=== PATIENT | male | born 1945 | race Caucasian/White ===

== ENCOUNTER 2018-05-07 09:35 | Emergency (ER) | payer MEDICARE, BC, SELFPAY ==
[2018-05-07 09:37] VITALS: BP 167/99; PULSE 69; RESP 16; TEMP 36.5; O2SAT 97; BMI 30.7
--- NOTE | 2018-05-07 09:54 | CT_ITS ---
STUDY: CT ABDOMEN AND PELVIS WITHOUT CONTRAST REASON FOR EXAM: Male, 72 years old. Right-sided groin pain. Lower abdominal pain. RADIATION DOSAGE (If Supplied By Facility): CTDIvol = ( 13.40 ) mGy, DLP = ( 823.81 ) mGycm TECHNIQUE: Transaxial images were obtained from the dome of the diaphragm to the symphysis pubis without oral contrast, and without intravenous contrast. Sagittal and coronal images were reconstructed. Individualized dose optimization techniques were used for this CT. COMPARISON: None. FINDINGS: The visualized lung bases are unremarkable. Coronary artery calcification. There is a 7.3 mm round hypodensity in the inferior aspect of the right lobe of the liver suggestive of a small cyst. Normal gallbladder and extrahepatic biliary system. Normal spleen. Normal pancreas. There is a small, circumscribed, smooth, low attenuation right adrenal mass, consistent with an adrenal adenoma. This measures 1.4 cm. Normal left adrenal gland. 3 mm nonobstructive calculus in the lower pole calyx of the right kidney. There is a 4.7 mm nonobstructive calculus in the lower pole calyx of the left kidney. 2 nonobstructive calculus are seen in the lower pole calyx of the left kidney measuring approximately 2.5 mm. Nonspecific bilateral perinephric stranding. There is a small hiatal hernia. Normal small intestine. There are scattered colonic diverticula consistent with diverticulosis. The patient is status post appendectomy. There is diffuse atherosclerotic calcification of the abdominal aorta, without a demonstrated aneurysm. Normal inferior vena cava. Normal retroperitoneum. Bladder wall thickening. There is enlargement of the prostate gland. The prostate measures 3.7 cm x 5.1 cm. Small bilateral fat-containing inguinal hernias. Small umbilical hernia. There are degenerative changes of the visualized lumbar spine. CT/Abdomen/Pelvis without Cont IMPRESSION: Nonobstructive small bilateral intrarenal calculi. Nonspecific bilateral perinephric stranding. Electronically Signed: Jori Vera MD at 11:21 EST Tel [phone], Service support ,
[2018-05-07 10:38] LABS: Bacteria 0 SEEN /hpf (None Seen); Mucous, Urine 0 SEEN /hpf (<or=2+); Red Blood Cells-Urine 0 SEEN /hpf (0-5); Squamous Epithelial Cells - UA 0 SEEN /hpf (0-5); White Blood Cells 0 SEEN /hpf (0-5)
[2018-05-07 10:39] LABS: Color, Urine Yellow (Yellow); Glucose, Dipstick Normal (Normal); Ketone-Dipstick Negative (Negative); Leukocyte Esterase-Dipstick Negative /ul (Negative); Nitrite-Dipstick Negative (Negative); Occult Blood-Urine Negative /ul (Negative); Protein-Dipstick Negative (Negative); Urine Bilirubin Dipstick Negative (Negative); Urine Clarity Clear (Clear); Urine Urobilinogen Normal (Normal)
[2018-05-07 10:50] LABS: Absolute Lymphocyte Count 1.23 X10^3/ul (0.83-4.51); Absolute Neutrophil Count 4.5 X10^3/uL (2.0-7.7); Basophil# 0.02 X10^3/uL; Basophil% 0.3 % (0-1); Eosinophil# 0.12 X10^3/uL; Eosinophils% 1.9 % (0-5); Hematocrit 43.3 % (40-54); Hemoglobin 14.8 g/dl (13.0-16.5); Lymphocyte # 1.23 X10^3/ul (4.0); Lymphocyte % 19.2 % (19-41); Mean Corp Hgb Conc 34.2 g/gl (32-36); Mean Corpuscular Hgb 30.9 pg (27.0-32.0); Mean Corpuscular Volume 90.4 fL (80-94); Mean Platelet Vol. 9.6 fl (6.2-12.0); Monocyte% 7.8 % (0-10); Neutrophil # 4.52 X10^3/uL (2.7-7.7); Neutrophil % 70.6 % (47-70); POSITIVE COUNT NO; POSITIVE DIFFERENTIAL NO; POSITIVE MORPHOLOGY NO; Platelet Count 168 K/mm3 (150-450); RBC Distribution Width CV 13.3 % (11.6-14.6); RBC Distribution Width SD 43.9 fl (35.1-43.9); Red Blood Count 4.79 M/mm3 (4.6-6.2); White Blood Count 6.4 K/mm3 (4.4-11.0)
[2018-05-07 11:08] LABS: ALB/GLOB Ratio 1.2 RATIO (0.9-2.4); AST(SGOT) 21 U/L (15-37); Alanine Aminotransfer ALT/SGPT 33 U/L (16-61); Albumin, Serum 3.6 g/dL (3.2-5.0); Alkaline Phosphatase 79 U/L (45-117); Anion Gap 4 (5-15); BUN 14 mg/dL (7-18); BUN/Creat Ratio 14.9 RATIO (10-20); Calcium,Total 8.4 mg/dL (8.5-10.1); Chloride 109 mmol/L (98-107); Creatinine, Serum 0.94 mg/dL (0.70-1.30); EST Glomerular Filtration Rate 84 mL/min (>60); Est Glom Filt Rate - Afr Amer 102 mL/min (>60); Estimated Creatinine Clearance 65.04 ml/min; Glucose 93 mg/dL (74-106); Potassium 4.1 mmol/L (3.5-5.1); Protein, Total 6.6 g/dL (6.4-8.2); Sodium Level 143 mmol/L (136-145)
[2018-05-07] MEDS: Morphine 4 MG/ML Syringe IV (11:25)
--- NOTE | 2018-05-07 11:36 | ED.DCSUM_ITS ---
- ER Visit Summary Date of Service: 05/07/18 Chief Complaint: Right lower quadrant abdominal pain History of Present Illness: The patient is a 72 M who presents with right lower quadrant abdominal pain. Started 10 days ago. He describes as sharp. Nothing makes it better or worse. He denies nausea, vomiting, diarrhea or constipation. Denies urinary symptoms. He denies any history of kidney stones. He has not had a fever. He states he feels swollen in the lower part of his abdomen. He has had an appendectomy approximately 30 years ago Physical Examination: Vital signs reviewed. HEENT exam unremarkable. Heart is regular rate and rhythm without murmurs. Lungs are clear to auscultation. Abdomen is soft mild right lower quadrant tenderness to palpation. Extremities reveal no edema. Skin exam normal. Neurologic exam normal. Test Results: Laboratory studies are normal. CAT scan reveals some nonspecific perinephric stranding with stones inside of the kidney. Emergency Department Course and Treatment: Patient initially declined medications with he was then given morphine. I am unclear the etiology of the patient's symptoms. It is possible that he may have passed a kidney stone. However, there are no stones in the ureters at this time. There is no dilation. He has no blood in his urine. His urinalysis is negative. I will send the patient with naproxen for pain control. He will need to follow-up with his PCP for further evaluation. Treatment Plan: [] Disposition: Discharge Impression: Right lower quadrant abdominal pain This note was generated with Backand dictation software. It may contain incorrect words, spelling, and punctuation that were not noted in review of the chart prior to signing ED Disposition - Plan for ED Patient: Disposition: Home or Assisted Living Chief Complaint: Abd Pain Instructions: ED Abdominal Pain Unkn Cause Prescriptions: Naproxen [Naprosyn] 500 mg PO BID PRN #20 tab Referrals: Tommy James [Primary Care Provider] -
[2018-05-07 12:17] VITALS: BP 140/63; PULSE 67; RESP 14; O2SAT 99
--- OUTSIDE RECORDS SUMMARY | 2018-08-08 23:50 | XMS RPT_ITS ---
:1945 Author Organization [facility] Address [address] [place] [id number] Phone Care Team Providers Name Role Phone Manny YI, Antonio Santana Reason for Visit Reason For Visit Description Start Date Postop - subsequent visit Preliminary reason for visit data, not yet signed by the author as of left shoulder post Left reverse total shoulder using Preserve 8 mm stem a 0 humeral on 04/03/2017 Preliminary reason for visit data, not yet signed by the author as of Chief Complaint Chief Complaint Description Start Date left shoulder post Left reverse total shoulder using Preserve 8 mm stem a 0 humeral on 04/03/2017 Preliminary chief complaint data, not yet signed by the author as of Instructions No information available. Plan of Care Type Date Detail Appointment 09:45 AM Antonio Bryant MD, [address] [facility], [email or web address], [place], [address], Appointment 10:15 AM Antonio Bryant MD, [address] [facility], [address], [place], [address], Pending order XR SHOULDER 2 VWS-LT Medications Medication Instructions Start Stop Generic Name NDC Provider Date Date LISINOPRIL 2.5 one tablet / LISINOPRIL 93357179343 Zeus L MG TABS daily 29 Ritchie YI VITAMIN D3 Take 1 capsule / CHOLECALCIFEROL 89695884843 Kathya [id number] UNIT CAPS by mouth daily 08 Czyzyk for 5 days. PA-C Then take 1 capsule by mouth per week for 5 weeks ATORVASTATIN take 1 tablet ATORVASTATIN 43205352243 Zoe CALCIUM 10 MG once daily 19 CALCIUM Fatimah PAYROLL EXAMINER TABS Conditions or Problems Problem Name Problem Onset Status Entry Provider Comment Standard Annotate Code Date Date Description Vitamin D 77672306 Active Antonio Bowling Vitamin D deficiency (SNOMED CT) 06/23 06/23 Manny YI deficiency Bruce of toe 07659020 Active Zeus Altman Bruce of toe 5th PIPJ (SNOMED CT) 06/25 06/25 Ritchie YI Curly toe 189157672 Active Zeus Altman Curly toe right 4th (SNOMED CT) 06/25 06/25 Ritchie and 5th MD toes History of 871836501 Active Zeus Altman H/O: surgery bunionectomy of (SNOMED CT) 06/25 06/25 Ritchie right great toe Metatarsalgia 85390565 Active Zeus Altman Metatarsalgia of right foot (SNOMED CT) 06/25 06/25 Ritchie YI Status post 450154216 Active Kathya History of reverse total (SNOMED CT) 06/07 06/07 Czyzyk operative arthroplasty of PA-C procedure on left shoulder shoulder Complete M75.122 Active Antonio Bowling Complete rotator cuff (ICD-10-CM) 10/19 10/19 Manny YI rotator cuff tear or rupture tear or of left rupture of shoulder not left shoulder, specified as not specified traumatic as traumatic Allergies, Adverse Reactions, Alerts Allergy Name Reaction Start Date Severity Status Provider Description ASPIRIN patient states Critical Active Zoe Sheridan that 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 Vital Signs Date Name Value Unit Description BMI (Body Mass 20.73 kg/m2 Body Mass Index Index) [Ratio] Preliminary vital sign data, not yet signed by the author as of BP Diastolic 87 mm[Hg] blood pressure, diastolic Preliminary vital sign data, not yet signed by the author as of BP Systolic 135 mm[Hg] blood pressure, systolic Preliminary vital sign data, not yet signed by the author as of Heart Rate 64 /min pulse rate E&M Preliminary vital sign data, not yet signed by the author as of Height 66 [in_us] height E&M Preliminary vital sign data, not yet signed by the author as of Height 168 cm height in centimeters E&M Preliminary vital sign data, not yet signed by the author as of Weight Measured 128 [lb_av] weight E&M Preliminary vital sign data, not yet signed by the author as of Weight Measured 58 kg weight in kilograms E&M Preliminary vital sign data, not yet signed by the author as of Results Date Name Value Unit Range Flag Description Office Visit: Postop - subsequent visit, Rm: 40 MEDS REVIEW Done Documentation of current medications (procedure) Preliminary observation data, not yet signed by the author as of Preliminary observation data, not yet signed by the author as of Clinical Summary: [facility]MS[facility] OOP account number Procedures Code Procedure Name Date Entry Date G8730 Pain assessment documented as positive - follow-up documented G8427 Current medications documented 1036F Tobacco screening was negative - non user G8420 BMI documented within normal parameters - no follow-up plan is required G8783 Blood pressure within normal parameters - no follow-up required [id number] Patient Encounter Medications Administered No information available. Immunizations No information available. Advance Directives There may be information available, but it has not been provided by the sender. Assessments There may be information available, but it has not been provided by the sender. Review of Systems There may be information available, but it has not been provided by the sender. Family History There may be information available, but it has not been provided by the sender. History of Past Illness There may be information available, but it has not been provided by the sender. History of Present Illness There may be information available, but it has not been provided by the sender.
--- OUTSIDE RECORDS SUMMARY | 2018-08-08 23:50 | XMS RPT_ITS ---
:1945 Author Organization OHIP Care Team Providers Name Role Phone RACHEAL LUTHER MD Admitting Unavailable RACHEAL LUTHER MD Attending Unavailable RACHEAL LUTHER MD Primary Care Unavailable KEYONA COKER MD Admitting Unavailable KEYONA COKER MD Attending Unavailable KEYONA COKER MD Primary Care Unavailable KEYONA COKER MD Consulting Unavailable PROVIDER, UNKNOWN Consulting Unavailable PROVIDER, UNKNOWN Consulting Unavailable PROVIDER, UNKNOWN Consulting Unavailable KEYONA COKER MD Admitting Unavailable KEYONA COKER MD Attending Unavailable KEYONA COKER MD Primary Care Unavailable MORIS MOSLEY Consulting Unavailable PROVIDER, UNKNOWN Consulting Unavailable PROVIDER, UNKNOWN Consulting Unavailable PROVIDER, UNKNOWN Consulting Unavailable Danish Platt Attending Unavailable KEYONA COKER Primary Care Unavailable Alirio Serna Attending Unavailable KEYONA COKER Referring Unavailable PROBLEMS PROBLEMS DATE TYPE CONDITION / CODE ATTENDING STATUS SOURCE 03/06/2018 Principle Pure LATOUF, BUTROS Active [place] Diagnosis hypercholesterolem MD [facility], unspecified / Hospital E7800(ICD-10) Repository 03/02/2018 Admitting Essential LATOUF, BUTROS Active [place] Diagnosis (primary) [facility] hypertension / Hospital I10(ICD-10) Repository 03/02/2018 Principle Essential LATOUF, BUTROS Active [place] Diagnosis (primary) [facility] hypertension / Hospital I10(ICD-10) Repository 03/02/2018 Secondary Pure LATOUF, BUTROS Active [place] Diagnosis hypercholesterolem [facility] ia, unspecified / Hospital E7800(ICD-10) Repository 03/02/2018 Secondary Encounter for LATOUF, BUTROS Active [place] [place] Diagnosis screening for [facility] malignant neoplasm [facility] of prostate / Repository Z125(ICD-10) PROCEDURES PROCEDURES No Procedure Records FoundRESULTS RESULTS SURGERY VISIT REPORT Observed: 05/21/2018 Status: F Source: [place] 1:03 PM [facility] REPOSITORY [facility] [address] [place] [address]. 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 Ointment] 1 drp OP DAILY PRN PRN 05/07/18 [History Confirmed 05/17/18] Naproxen [Naprosyn] 500 mg PO BID PRN #20 tab 05/07/18 [Rx Confirmed 05/17/18] aspirin 81 mg tablet,delayed release 81 mg PO DAILY 05/17/18 [History Confirmed 05/17/18] multivitamin,ky-prex-dtbgzspe tablet 1 tab PO DAILY 05/17/18 [History Confirmed 05/17/18] [facility] Medical History Back pain (Acute) Benign neoplasm of colon (Acute) DJD (degenerative joint disease) (Acute) Depression (Acute) Hyperlipidemia (Acute) HTN (hypertension) (Chronic) Surgical History History of appendectomy (Acute) History of bunionectomy (Acute) History of cataract extraction (Acute) History of colonoscopy (Acute) History of shoulder surgery (Acute) Status post excision of Suggs's neuroma (Acute) Family History Sister Breast cancer Brother Hypertension Heart disease Diabetes Mother Asthma Social History Smoking Status: Never smoker alcohol intake: never substance use type: does not use HPI HPI HPI: JOSE POTTER, is a 72 M who presents to the office today for evaluation of pain in his right lower quadrant right inguinal area. He was seen in [facility]'s emergency department. Laboratory studies are normal. CAT scan reveals some nonspecific perinephric stranding with stones inside of the kidney. He has not noticed a bulge in his inguinal area ROS General General: No weight change, appetite, fatigue, colon cancer, breast cancer or weakness HEENT HEENT: Yes eye surgery; no difficulty swallowing, eye injury, swollen glands or hoarseness Endo Endocrine: No thyroid disease, diabetes mellitus, thyroid cancer, Hair loss, heat intolerance or cold intolerance Skin Skin: No rash or changing moles Breast Breast: No left breast lump, right breast lump, nipple discharge, breast pain, abnormal mammogram, abnormal US or breast enlargement Musc Musculoskeletal: Yes back problems; no arthritis, rheumatoid arthritis, gout or joint pain Cardio Cardiovascular: Yes high blood pressure; no murmur, pacemaker, heart disease, atrial fibrillation, heart attack, heart stent, palpitations, shortness of breat with exertion or chest pain Psych Psychiatric: No depression, anxiety or hearing voices Resp Respiratory: No shortness of breath, No sleep apnea, No cough, No COPD, No asthma, No emphysema, No wheezing Gastro Gastrointestinal: No abdominal pain, No nausea or vomiting, No diarrhea, No constipation, No blood in stool, No acid reflux, No hemorrhoids, No ulcers, No gallbladder problem, No black,tarry stools Randell Hematologic: No blood thinners, No blood disorders, No bleeding, No anemia, No blood clots Neuro Neurologic: No system reviewed and no additional complaints, except as docu, No as per HPI, No abnormal walking, No abnormal hearing, No abnormal movements, No abnormal speech, No behavioral changes, No burning sensations, No confusion, No seizure-like activity, No unsteadiness, No dizziness, No localized weakness, No frequent falls, No headache(s), No lack of coordination, No loss of vision, No memory loss, No numbness, No other visual disturbances, No radiating pain, No restless legs, No sensory deficit, No fainting, No tingling, No tremor(s), No weakness, No other Exam Chest Breast Palpation: No nipple discharge Other: Lungs are clear to auscultation heart regular rate Cardio Heart Sounds: no murmurs GI Other: Patient has a well-healed right lower quadrant incision from a previous appendectomy. There is no signs of any inguinal hernias identified. Testicles appear to be normal with no masses. His cutaneous sensation within the right groin and upper thigh appear to be normal Assessment AND Plan Problems 1. Abnormal CT scan, kidney R93.429 2. Right lower quadrant abdominal abscess K65.1 Plan At this point he has no surgical needs for hernia operations. However his CAT scan does look abnormal with regards to his kidneys and I have recommended that he obtain a consultation from a urologist for this. In addition he also has some numbness in his right upper thigh area which probably would behoove him to obtain a neurology consult for this evaluation. At the present time I have no surgical interventions planned for him unless he specifically notices a bulge coming out into his right inguinal and testicle area Coding Level of Care Code Off vis,new,level [address] scan, kidney R93.429 Right lower quadrant abdominal abscess K65.1 05/21/18 1303 <Electronically signed by Alirio Serna MD> Date Alirio Serna MD Cosigner Signature: Date (if applicable) CC: Keyona Coker EMERGENCY DEPARTMENT Observed: 05/07/2018 Status: F Source: [place] SUMMARY 11:50 AM [facility] REPOSITORY [facility] Medical Records Department [address] [place] [address] Emergency Department Summary 05/07/18 1136 MR#: [id number] Acct: [id number] Name: JOSE POTTER Rep #: [id number] : 1945 72 From: Danish Platt MD PCP: Keyona Coker Status: REG ER - ER Visit Summary Date of Service: 05/07/18 Chief Complaint: Right lower quadrant abdominal pain History of Present Illness: The patient is a 72 M who presents with right lower quadrant abdominal pain. Started 10 days ago. He describes as sharp. Nothing makes it better or worse. He denies nausea, vomiting, diarrhea or constipation. Denies urinary symptoms. He denies any history of kidney stones. He has not had a fever. He states he feels swollen in the lower part of his abdomen. He has had an appendectomy approximately 30 years ago Physical Examination: Vital signs reviewed. HEENT exam unremarkable. Heart is regular rate and rhythm without murmurs. Lungs are clear to auscultation. Abdomen is soft mild right lower quadrant tenderness to palpation. Extremities reveal no edema. Skin exam normal. Neurologic exam normal. Test Results: Laboratory studies are normal. CAT scan reveals some nonspecific perinephric stranding with stones inside of the kidney. Emergency Department Course and Treatment: Patient initially declined medications with he was then given morphine. I am unclear the etiology of the patient's symptoms. It is possible that he may have passed a kidney stone. However, there are no stones in the ureters at this time. There is no dilation. He has no blood in his urine. His urinalysis is negative. I will send the patient with naproxen for pain control. He will need to follow-up with his PCP for further evaluation. Treatment Plan: [] Disposition: Discharge Impression: Right lower quadrant abdominal pain This note was generated with [employer] dictation software. It may contain incorrect words, spelling, and punctuation that were not noted in review of the chart prior to signing ED Disposition - Plan for ED Patient: Disposition: Home or Assisted Living Chief Complaint: Abd Pain Instructions: ED Abdominal Pain Unkn Cause Prescriptions: Naproxen [Naprosyn] 500 mg PO BID PRN #20 tab Referrals: Keyona Coker [Primary Care Provider] - What to do if you have Problems For any increased pain, shortness of breath, bleeding, nausea or vomiting, chest pain, or any unexpected problems, contact your Primary Care Provider. Call [facility] ([phone]) or report to the closest Emergency Room. Call 911 if necessary. 05/07/18 1150 <Electronically signed by Danish Platt MD> Date Danish Platt MD Cosigner Signature (If Indicated): Date CC: Keyona Coker DISCHARGE INSTRUCTION Observed: 05/07/2018 Status: F Source: [place] 11:37 AM [facility] REPOSITORY [facility] Medical Records Department [address] [place] [address] Discharge Instruction 05/07/18 1136 MR#: [id number] Acct: [id number] Name: JOSE POTTER Rep #: [id number] : 1945 72 From: Danish Platt MD PCP: Keyona Coker Status: REG ER ED Disposition - Plan for ED Patient: Disposition: Home or Assisted Living Chief Complaint: Abd Pain Instructions: ED Abdominal Pain Unkn Cause Prescriptions: Naproxen [Naprosyn] 500 mg PO BID PRN #20 tab Referrals: Keyona Coker [Primary Care Provider] - What to do if you have Problems For any increased pain, shortness of breath, bleeding, nausea or vomiting, chest pain, or any unexpected problems, contact your Primary Care Provider. Call [facility] ([phone]) or report to the closest Emergency Room. Call 911 if necessary. 05/07/18 1137 <Electronically signed by Danish Platt MD> Date Danish Platt MD Cosigner Signature (If Indicated): Date CC: Keyona Coker CBC W/DIFF, AUTOMATED Collected: 05/07/2018 Status: F Source: [place] 10:40 AM [facility] REPOSITORY TYPE CODE TESTS RESULT OUT OF RANGE REFERENCE UNITS LAB L100.1000 4.4-11.0 K/mm3 Normal WBC 6.4 LAB L100.1200 4.6-6.2 M/mm3 Normal RBC 4.79 LAB L100.1300 13.0-16.5 g/dl Normal HGB 14.8 LAB L100.1400 40-54 % Normal HCT 43.3 LAB L100.1500 80-94 fL Normal MCV 90.4 LAB L100.1600 27.0-32.0 pg Normal MCH 30.9 LAB L100.1700 32-36 g/gl Normal MCHC 34.2 LAB L100.1810 11.6-14.6 % Normal RDW CV 13.3 LAB L100.1820 35.1-43.9 fl Normal RDW SD 43.9 LAB L100.1900 150-450 K/mm3 Normal PLT 168 LAB L100.2000 6.2-12.0 fl Normal MPV 9.6 LAB L100.2100 47-70 % High NEUT% 70.6 LAB L100.2200 19-41 % Normal LY% 19.2 LAB L100.2300 0-10 % Normal MONO% 7.8 LAB L100.2400 0-5 % Normal EO% 1.9 LAB L100.2500 0-1 % Normal BASO% 0.3 LAB L100.2550 0.0-0.9 % Normal IM GRAN % 0.200 Result Comment: IG% - Immature Granulocytes (promyelocytes, myelocytes and metamyelocytes) > 1% indicates that a LEFT SHIFT is Present. LAB L100.2620 2.0-7.7 X10 3/uL Normal Absolute Neut 4.5 LAB L100.2720 0.83-4.51 X10 3/ul Normal Absolute Lymph 1.23 Performed By: #### L100.0100 #### [facility] [address] [place], [address] COMPREHENSIVE METABOLIC Collected: 05/07/2018 Status: F Source: [place] [facility] 10:40 AM [facility] REPOSITORY TYPE CODE TESTS RESULT OUT OF RANGE REFERENCE UNITS LAB L501.0100 74-106 mg/dL Normal GLU 93 Result Comment: Please note revised GLUCOSE reference range effective 2017. LAB L501.1000 7-18 mg/dL Normal BUN 14 LAB L501.1100 0.70-1.30 mg/dL Normal CREAT,SERUM 0.94 Result Comment: The validity of the calculated GFR AND GFRAA in patients over 70 years has not been determined. Clinical correlation is essential. LAB L501.1110 >60 mL/min Normal EST GFR 84 Result Comment: Non- GFR Calc LAB L501.1115 >60 mL/min Normal EST GFR - AA 102 Result Comment: GFR Calc LAB L501.1255 ml/min Normal Estimated CRCL 65.04 LAB L501.1300 10-20 RATIO Normal BUN/CRE 14.9 LAB L501.1500 6.4-8. g/dL Normal 2 T PROT 6.6 LAB L501.1800 3.2-5. g/dL Normal 0 ALB 3.6 LAB L501.1950 2.2-4. g/dL Normal 2 GLOB 3.0 LAB L501.2000 0.9-2. RATIO Normal 4 A/G 1.2 LAB L501.2200 8.5-10 mg/dL Low .1 CA 8.4 LAB L501.4100 15-37 U/L Normal AST 21 LAB L501.4305 45-117 U/L Normal ALK P 79 LAB L501.4405 16-61 U/L Normal ALT 33 LAB L501.4600 0.20-1 mg/dL Normal .00 T BILI 0.50 LAB L501.5300 136-14 mmol/L Normal 5 NA 143 LAB L501.5600 3.5-5. mmol/L Normal 1 K 4.1 LAB L501.5900 98-107 mmol/L High CL 109 LAB L501.6100 21.0-3 mmol/L Normal 2.0 CO2 30.0 LAB L501.6200 5-15 Low GAP 4 Performed By: #### L500.4050 #### [facility] [address] [place], [address] URINALYSIS, COMPLETE Collected: 05/07/2018 Status: F Source: [place] 10:00 AM [facility] REPOSITORY Order Comment: Order Date: 05/07/18 How was Urine Obtained? CLEAN CATCH TYPE CODE TESTS RESULT OUT OF RANGE REFERENCE UNITS LAB L400.3000 Yellow COLOR Normal Yellow LAB L400.3050 Clear Normal CLARITY Clear LAB L400.3200 Normal mg/dl Normal GLUCOSE, UR Normal LAB L400.3300 Negative mg/dL Normal BILIRUBIN URINE Negative LAB L400.3400 Negative mg/dl Normal KETONE UR Negative LAB L400.3465 1.002-1.030 Normal SP.GR. DIPSTX 1.010 LAB L400.3550 5.0 - 8.0 pH UR Normal 7.0 LAB L400.3600 Negative mg/dl PROT Normal DIPSTX Negative LAB L400.3700 Normal mg/dl Normal UROBILI Normal LAB L400.3750 Negative Normal NITRITE UR Negative LAB L400.3780 Negative /ul Normal OCCULT BLOOD-UR Negative LAB L400.3800 Negative /ul LEUK Normal ESTERASE Negative LAB L400.4050 0-5 /hpf WBC 0 Normal SEEN LAB L400.4100 0-5 /hpf 0 Normal RBC-UA SEEN LAB L400.4150 0-5 /hpf SQUAM 0 Normal EPI SEEN LAB L400.4300 None Seen /hpf 0 Normal BACTERIA SEEN LAB L400.4350 <or=2+ /hpf 0 Normal MUCUS, URINE SEEN Performed By: #### L400.0001 #### [facility] [address] [place], [address] ABDOMEN/PELVIS WITHOUT Observed: 05/07/2018 Status: F Source: [place] CONT 9:55 AM [facility] REPOSITORY [facility] Imaging Services [address] [place] [address] Abdomen/Pelvis without Cont MR#: [id number] Acct: [id number] Name: JOSE POTTER Rep #: [id number] : 1945 M 72 From: Jori Vera MD PCP: Keyona Coker Status: REG ER Study: Abdomen/Pelvis without Cont Date of Exam: 05/07/18 Exam# [id number] Ordering Dr: Danish Platt MD STUDY: CT ABDOMEN AND PELVIS WITHOUT CONTRAST REASON FOR EXAM: Male, 72 years old. Right-sided groin pain. Lower abdominal pain. RADIATION DOSAGE (If Supplied By Facility): CTDIvol = ( 13.40 ) mGy, DLP = ( 823.81 ) mGycm TECHNIQUE: Transaxial images were obtained from the dome of the diaphragm to the symphysis pubis without oral contrast, and without intravenous contrast. Sagittal and coronal images were reconstructed. Individualized dose optimization techniques were used for this CT. COMPARISON: None. FINDINGS: The visualized lung bases are unremarkable. Coronary artery calcification. There is a 7.3 mm round hypodensity in the inferior aspect of the right lobe of the liver suggestive of a small cyst. Normal gallbladder and extrahepatic biliary system. Normal spleen. Normal pancreas. There is a small, circumscribed, smooth, low attenuation right adrenal mass, consistent with an adrenal adenoma. This measures 1.4 cm. Normal left adrenal gland. 3 mm nonobstructive calculus in the lower pole calyx of the right kidney. There is a 4.7 mm nonobstructive calculus in the lower pole calyx of the left kidney. 2 nonobstructive calculus are seen in the lower pole calyx of the left kidney measuring approximately 2.5 mm. Nonspecific bilateral perinephric stranding. There is a small hiatal hernia. Normal small intestine. There are scattered colonic diverticula consistent with diverticulosis. The patient is status post appendectomy. There is diffuse atherosclerotic calcification of the abdominal aorta, without a demonstrated aneurysm. Normal inferior vena cava. Normal retroperitoneum. Bladder wall thickening. There is enlargement of the prostate gland. The prostate measures 3.7 cm x 5.1 cm. Small bilateral fat-containing inguinal hernias. Small umbilical hernia. There are degenerative changes of the visualized lumbar spine. CT/Abdomen/Pelvis without Cont IMPRESSION: Nonobstructive small bilateral intrarenal calculi. Nonspecific bilateral perinephric stranding. Electronically Signed: Jori Vera MD at 11:21 EST Tel [phone], Service support , CC: Keyona Coker; Danish Platt MD Filenet Architect: Signed PSA CANCER SCREENING Collected: 03/02/2018 Status: F Source: [facility]OS[facility] ([id number]) 10:05 [facility] REPOSITORY TYPE CODE TESTS RESULT OUT OF RANGE REFERENCE UNITS LAB PSA(LOINC) 0.00 - 4.00 ng/ml PSA 3.84 Performed By: #### [id number] #### [place] [address] LIPID PROFILE Collected: 03/02/2018 Status: F Source: [place] HOWE 10:05 [facility] REPOSITORY TYPE CODE TESTS RESULT OUT OF REFERENCE UNITS RANGE LAB LIPID PROFILE(LOIN C) LIPID PROFILE Result Comment: LIPID PROFILE LAB TRIGLYCERIDE(LOINC) 0 - 150 mg/dl TRIGLYCERIDE 95 LAB CHOLESTEROL(LOINC) 0 - 200 mg/dl CHOLESTEROL 181 LAB HDL(LOINC) 40 - 60 mg/dl HDL 48 LAB CHOL/HDL(LOINC) 0.0 - 5.0 CHOL/HDL 3.8 LAB LDL(LOINC) 0 - 129 mg/dl LDL 114 Performed By: #### [id number] #### [facility],[address] [place] [address] CMP WITH EGFR Collected: 03/02/2018 Status: F Source: [facility]ARMES[facility] 10:05 [facility] REPOSITORY TYPE CODE TESTS RESULT OUT OF RANGE REFERENCE UNITS LAB CMP with eGFR(LOINC) CMP with eGFR Result Comment: COMPREHENSIVE METABOLIC PANEL LAB SODIUM(LOINC) 136 - 145 mmol/l SODIUM 139 LAB POTASSIUM(LOINC) 3.5 - 5.1 mmol/L POTASSIUM 4.2 LAB CHLORIDE(LOINC) 98 - 107 mmol/L CHLORIDE 104 LAB CO2(LOINC) 21.0 - mmol/L 31.0 CO2 28.4 LAB GLUCOSE(LOINC) 74 - 106 mg/dl GLUCOSE 96 LAB BUN(LOINC) 6 - 20 mg/dl BUN 17 LAB CREATININE(LOINC) 0.7 - 1.3 mg/dl CREATININE 1.0 LAB AST/SGOT(LOINC) 13 - 39 U/L AST/SGOT 17 LAB ALK PHOS(LOINC) 38 - 126 U/L ALK PHOS 58 LAB CALCIUM(LOINC) 8.6 - mg/dl 10.2 CALCIUM 8.9 LAB TOTAL 6.4 - 8.3 g/dl PROTEIN(LOINC) TOTAL PROTEIN 6.4 LAB ALBUMIN(LOINC) 3.4 - 4.8 g/dL ALBUMIN 4.0 LAB GLOBULIN(LOINC) 1.5 - 3.8 G/DL GLOBULIN 2.4 LAB A/G RATIO(LOINC) 0.9 - 1.6 A/G High RATIO 1.7 LAB TOTAL BILI(LOINC) 0.0 - 1.5 mg/dl TOTAL BILI 0.6 LAB B/C RATIO(LOINC) 0 - 30 ratio B/C RATIO 17 LAB ALT/SGPT(LOINC) 10 - 40 U/L ALT/SGPT 20 LAB ANION GAP(LOINC) 10 - 20 mmol/L ANION GAP 11 LAB AGE(LOINC) years AGE 72 LAB eGFR(LOINC) 60 - 999 ML/MINUTE eGFR >60 LAB eGFR(AA)(LOINC) 60 - 999 ML/MINUTE eGFR(AA) >60 Result Comment: ACCORDING TO THE NATIONAL KIDNEY DISEASE EDUCATION PROGRAM(NKDE), A NORMAL eGFR IS A VALUE GREATER THAN OR EQUAL TO 60 ML/MIN/1.73 SQ METERS. CHRONIC KIDNEY DISEASE: <60mL/MIN/1.73 SQ METERS KIDNEY FAILURE: <15mL/MIN/1.73 SQ METERS THIS TEST SHOULD ONLY BE USED FOR PATIENTS 18 YEARS OF AGE AND OLDER. Performed By: #### [id number] #### [facility],[address] [place], [place] [address] TSH Collected: 03/02/2018 Status: F Source: [facility] 10:05 AM [facility] REPOSITORY TYPE CODE TESTS RESULT OUT OF RANGE REFERENCE UNITS LAB TSH(LOINC) 0.34 - 5.60 uIU/ml TSH 1.49 Performed By: #### [id number] #### [address] [address] CPK Collected: 03/02/2018 Status: F Source: [facility] 10:05 [facility] REPOSITORY TYPE CODE TESTS RESULT OUT OF RANGE REFERENCE UNITS LAB CPK(LOINC) 37 - 174 U/L CPK 116 Performed By: #### [id number] #### [address] [address] CBC Collected: 03/02/2018 Status: F Source: [facility] 10:05 [facility] REPOSITORY TYPE CODE TESTS RESULT OUT OF RANGE REFERENCE UNITS LAB CBC(LOINC) CBC Result Comment: CBC-COMPLETE BLOOD COUNT LAB WBC(LOINC) 4.5 - 10.8 x 10EE3/UL WBC 6.5 LAB RBC(LOINC) 4.50 - x 10EE6/UL 6.00 RBC 4.60 LAB HEMOGLOBIN(LOINC) 13.0 - g/dl 17.5 HEMOGLOBIN 14.6 LAB HEMATOCRIT(LOINC) 40.0 - % 52.0 HEMATOCRIT 42.0 LAB MCV(LOINC) 81 - 98 fl MCV 91 LAB MCH(LOINC) 27 - 33 pg MCH 32 LAB MCHC(LOINC) 32 - 36 X10 3 MCHC 35 LAB RDW/CV(LOINC) 12.0 - % 15.6 RDW/CV 14.0 LAB PLATELET(LOINC) 150 - 450 x10EE3/UL PLATELET 207 LAB MPV(LOINC) 6.4 - 10.5 fl MPV 8.9 Result Comment: AUTOMATED DIFFERENTIAL LAB NEUT %(LOINC) 46.0 - 76.0 % NEUT % 66.2 LAB LYMPH %(LOINC) 20.0 - 45.0 % LYMPH % 21.9 LAB MONOS %(LOINC) 0.0 - 10.0 % MONOS % 8.7 LAB EO %(LOINC) 0.0 - 7.0 % EO % 2.3 LAB BASO %(LOINC) 0.0 - 2.0 % BASO % 0.9 LAB Lymph #(LOINC) 0.80 - 2.80 x10EE3/U L Lymph # 1.40 LAB Neut #(LOINC) 1.50 - 7.10 x10EE3/U L Neut # 4.30 LAB [place] #(LOINC) 0.20 - 1.00 x10EE3/U L [place] # 0.60 LAB EO #(LOINC) 0.00 - 0.50 x10EE3/U L EO # 0.20 LAB Baso #(LOINC) 0.00 - 0.10 x10EE3/U L Baso # 0.10 LAB MANUAL DIFF(LOINC) MANUAL DIFF N/A LAB MORPHOLOGY(LOINC ) MORPHOLOGY N/A Result Comment: {CD] Performed By: #### [id number] #### [address] [address] VITAMIN D, 25 Collected: 06/23/2017 Status: F Source: [facility] HYDROXY 1:57 PM [facility] REPOSITORY TYPE CODE TESTS RESULT OUT OF RANGE REFERENCE UNITS LAB VitD(LOINC) 30.00 - 100 ng/mL VitD 69.20 Result Comment: 25-OHD3 indicates both endogenous production and supplementation. 25-OHD2 is an indicator of exogenous sources, such as diet or supplementation. Therapy is based on measurement of Total 25-OHD, with levels <20 ng/mL indicative of Vitamin D deficiency, while levels between 20 ng/mL and 30 ng/mL suggest insufficiency. Optimal levels are >=30ng/mL. Vitamin D, 25-OH D3 Not Established Vitamin D, 25-OH D2 Not Established Performed By: #### [id number] #### [address] [address] ALLERGIES ALLERGIES DATE TYPE / CODE NAME / CODE REACTION SEVERITY SOURCE 05/17/2018 Drug No Known Unknown [facility] Allergy/4160 Allergies/F00 Hospital 41602(SNOMED 8194099(RXNOR Repository CT) M) Drug ASPIRIN/05986 Moderate [facility] Allergy/4160 287(RXNORM) (Severity [facility] [address](SNOMED Modifier) Repository CT) (Qualifier Value) ENCOUNTERS ENCOUNTERS ADMIT/DISCHARGE ACCOUNT ADMITTING ENCOUNTER LOCATION SOURCE NUMBER CLASS 05/17/2018/ [id number] Ambulatory BMSBuilding:B [place] 8 2 MS.WSA [facility] Repository 05/07/2018/ [id number] Emergency [place] 8 9 [facility] ing:ED Repository 03/06/2018 [id number] [facility]UL[facility] Repository 03/02/2018/ [id number] JOHN PAUL, Ambulatory [facility] Donna RAND [facility] Repository 06/23/2017/ [id number] RACHEAL LUTHER MD [address] Repository PAYERS PAYERS ENCOUNTER GUARANTOR PAYER SUBSCRIBER SOURCE 05/17/2018 JOSE L Primary JOSE L [place] [id number] Insurance:MEDICARE STRAUSBAUGHDOB: [facility] CR PART A BPolicy Number: [id number], [id number] [place]ository [place] [address]Wxn: Date:2018-05-10 () 05/17/2018 Secondary JOSE L [place] Insurance:ANTHEMPolicy STRAUSBAUGHDOB: Community Number: [id number] [id number] Repository Date:1164-02-45[id number] [place] [address]GE: 05/17/2018 Tertiary NOT GIVENUNK [place] Insurance:SELF PAY [facility] Number: Effective Repository Date:2018-05-16 05/07/2018 JOSE L Primary JOSE L [place] [id number] Insurance:MEDICARE STRAUSBAUGHDOB: Community CR PART A BPolicy Number: [id number], [id number] [place]ository [place] [address]Xwq: Date:2018-05-07 () 05/07/2018 Secondary JOSE L Idania Insurance:ANTHEMPolicy STRAUSBAUGHDOB: [facility] Number: [id number] [id number] Repository Date:[id number] [address]JXLGHXN, [place] [address]WO: 05/07/2018 Tertiary NOT GIVENUNK [place] Insurance:SELF PAY Community INSURANCEPolicy [facility] Number: Effective Repository Date:2018-05-07 03/06/2018 JOSE Altman Primary Insurance:CGS JOSE Howe STRAUSBAUGHDOB: - STRAUSBAUGHDOB: [facility] MEDICARE-PRIMARYPolicy [id number] Hospital CR Number: 2 CR Repository [address] [place] [address], [id number] [address] [place] [address] [place] [address]Eke: Date:Plan Name:[facility] [id number] () 03/02/2018 JOSE Altman Primary Insurance:500 JOSE Howe STRAUSBAUGHDOB: MEDICARE STRAUSBAUGHDOB: [facility] [id number] Hospital CR Number: [address] Repository [address] [place] [address], [id number] [address] [place] [address] [place] [address]Xbd: Date:Plan Name:[facility] [id number] () 03/02/2018 Secondary JOSE Howe Insurance:BLUE CROSS STRAUSBAUGHDOB: [address] [id number] Hospital OUTPATIENTPolicy 2 C R Repository Number: 150[facility] [id number] [place] [address] Date:Plan Name:[address] [address], [place] [id number]: 06/23/2017 JOSE Altman Primary Insurance:500 JOSE Howe STRAUSBAUGHDOB: MEDICARE STRAUSBAUGHDOB: [facility] [id number] Hospital CR Number: [address] Repository [address] [place] [address], [id number] [address] [place] [address]Oit: Date:Plan Name:[facility] [id number] () 06/23/2017 Secondary JOSE Howe Insurance:BLUE CROSS STRAUSBAUGHDOB: [address] [id number] Hospital OUTPATIENTPolic [address] Repository Number: [facility] [id number] Ri [id number] Date:Plan Name:B2P O [place] [id number], [place] [id number]:
== END 2018-05-07 12:37 | disposition home or self-care (01) ==
PROVIDERS: Emergency Provider Emergency Medicine; Family Provider Internal Medicine; PCP Internal Medicine
DX: R10.31 Right lower quadrant pain (principal); N20.0 Calculus of kidney; I10 Essential (primary) hypertension; E78.00 Pure hypercholesterolemia, unspecified; Z79.899 Other long term (current) drug therapy
CPT/HCPCS: 74176; 80053; 81001; 85025; 96374; 99283; A4216

== ENCOUNTER → 2018-09-13 | Outpatient (CLI) | payer MEDICARE, BC, SELFPAY ==
[2018-05-17 08:43] VITALS: BMI 29.8
--- NOTE | 2018-09-13 11:00 | CYSPIN_PTH ---
PATIENT: JOSE POTTER [facility] U#:[id number] AGE/SX: 72/M ROOM: RE09/13/[address]: Dr. Florian Galdamez MD : 1945 BED: DIS: 09/13/2018 SPEC #: [id number] RECD: 09/14/18 08:30 STATUS: NOELLE ESTER #: [id number] SAEID: 09/13/18 11:[address]: Florian Galdamez DEPT: CYTOLOGY RECD BY: Edmund Gonzales ENTERED: 09/14/18 08:31 SP TYPE: CYSPIN FL OTHR DR: Dr. Tommy James MD Tissues: Urine Procedures: Pap Stain (control) Special Stain Group II Cytospin Fluid HEADER OPERATION: Not noted PRE-OP DIAGNOSIS: Abnormal radiology TISSUE SUBMITTED: Urine for cytology DIAGNOSIS CYTOLOGY Urine for cytology (cytospin): Negative for malignant cells. See comment. CRISTÓBAL:palmira 09/17/18 COMMENT The specimen is paucicellular. Clinical correlation and appropriate follow up are necessary. CYTOLOGY STUDY Slides are reviewed. CYTOLOGY GROSS Received is 70 ml of clear yellow fluid labeled with the patient's name and and designated per the requisition as urine. Submitted for cytology preparation. / 09/14/18 TC:5 CPT: 63900
[2018-09-13 17:48] LABS: Cytology, Body Fluid / CSF SEE PATHOLOGY REPORT
== END | disposition home or self-care (01) ==
PROVIDERS: Family Provider Internal Medicine; PCP Internal Medicine; Referring Provider Urology; Visit Provider Urology
DX: N32.89 Other specified disorders of bladder (principal)
CPT/HCPCS: 88108; 88313

== ENCOUNTER → 2022-09-29 | Outpatient (CLI) | payer MEDICARE, BC, SELFPAY ==
--- NOTE | 2022-09-29 | IMM_PTH ---
PATIENT: JOSE POTTER LOC: [facility] U#:[id number] AGE/SX: 76/M ROOM: RE09/29/[address]: Dr. Florian Galdamez MD : 1945 BED: DIS: 09/29/2022 SPEC #: [id number] RECD: 10/03/22 13:36 STATUS: NOELLE REQ #: [id number] SAEID: 09/29/22 00:[address]: Florian Galdamez DEPT: IMMUNOHISTOCHEMISTRY RECD BY: Emily Young ENTERED: 10/03/22 13:37 SP TYPE: IMMUNO OTHR DR: Dr. Tommy James MD Tissues: C - PROSTATE RIGHT E - PROSTATE LEFT F - PROSTATE LEFT Procedures: 34BE12 (add) P40 (add) 34BE12 (initial) PHYSICIAN & INSTITUTION [place] [address] SPECIMEN INFORMATION: Tissue Source: A - Right prostate, base, E - Left prostate, mid, F - Left prostate, base Clinical Info: Elevated PSA Specimen Number: [id number] C, E & F CPT code: 07538, 19294 x5 METHODOLOGY: Deparaffinized sections of prefer/formalin-fixed tissue or PAP/DQ stained slides are incubated with monoclonal/polyclonal antibodies/oligonucleotide probes. Localization is made via biotin free immunoperoxidase method. Appropriate controls are performed and reacted as expected. Results on target cell population are indicated in the following table: RESULTS: ANTIBODY / CLONE RESULT Block C P40 (BC28) negative 34BE12 (34BE12) negative Block E P40 (BC28) negative 34BE12 (34BE12) negative Block F P40 (BC28) negative 34BE12 (34BE12) negative These tests were developed and their performance characteristics determined by [facility]. They may not have been cleared or approved by the U.S. Food and Drug Administration. The FDA has determined that such clearance or approval is not necessary. The above immunohistochemical/dualISH markers are ordered and reviewed by the Pathologist. INTERPRETATION: C. Right prostate, base, core biopsy: Focal atypical small acinar proliferation (NICOLE). E. Left prostate, mid, core biopsy: Adenocarcinoma. F. Left prostate, base, core biopsy: Adenocarcinoma. SJ:palmira 10/04/2022
--- NOTE | 2022-09-29 08:00 | PROSBIL_PTH ---
PATIENT: JOSE POTTER LOC: [facility] U#:[id number] AGE/SX: 76/M ROOM: RE09/29/[address]: Dr. Florian Galdamez MD : 1945 BED: DIS: 09/29/2022 SPEC #: [id number] RECD: 09/29/22 16:23 STATUS: NOELLE REZoe #: [id number] SAEID: 09/29/22 08:[address]: Florian Galdamez DEPT: SURGICAL PATHOLOGY RECD BY: Mary Vázquez ENTERED: 09/30/22 09:25 SP TYPE: PROST BX BRANT DR: Dr. Tommy James MD Tissues: A - PROSTATE RIGHT B - PROSTATE RIGHT C - PROSTATE RIGHT D - PROSTATE LEFT E - PROSTATE LEFT F - PROSTATE LEFT Procedures: PROSTATE BX HEADER OPERATION: Prostate biopsy PRE-OP DIAGNOSIS: Elevated PSA TISSUE SUBMITTED: A - Right apex, B - Right mid, C - Right base, D - Left apex, E - Left mid, F - Left base MICROSCOPIC DIAGNOSIS A. Right prostate, apex, core biopsy: Prostatic tissue, negative for malignancy. B. Right prostate, mid, core biopsy: Prostatic tissue, negative for malignancy. See comment. C. Right prostate, base, core biopsy: Focal atypical small acinar proliferation (NICOLE), suspicious for carcinoma. See comment. D. Left prostate, apex, core biopsy: Prostatic tissue, negative for malignancy. E. Left prostate, mid, core biopsy: Prostatic adenocarcinoma. Medway grade: 3+3=6 Number of cores involved: 1/2 Proportion of tissue involved: <5% Perineural invasion: Not identified. Greatest tumor length: <0.1 cm See comment. F. Left prostate, base, core biopsy: Prostatic adenocarcinoma. Wyatt grade: 3+3=6 Number of cores involved: 1/1 Proportion of tissue involved: <5% Perineural invasion: Not identified. Greatest tumor length: <0.1 cm See comment. SJ:palmira 10/03/2022 COMMENT B. Minute fragments of colonic mucosa are also noted with focal hyperplastic changes. C, E & F - Immunohistochemistry ([id number]) supports the above diagnosis. Case has been reviewed in consultation with Dr. Trinidad who concurs with the above diagnosis. IDC:AM MICROSCOPIC DESCRIPTION Slides are reviewed. GROSS DESCRIPTION A - Received is one container designated prostate, right apex. The specimen consists of one elongated fragment of light dean-white soft tissue measuring 1.2 cm in length and 0.1 cm in diameter. The specimen is totally submitted in one cassette. B - Received is one container designated prostate, right mid. The specimen consists of two elongated fragments of light dean-white soft tissue measuring 1.2 and 1.5 cm in length and 0.1 cm in diameter. The specimen is totally submitted in one cassette. C - Received is one container designated prostate, right base. The specimen consists of one elongated fragment of light dean-white soft tissue measuring 1.1 cm in length and 0.1 cm in diameter. The specimen is totally submitted in one cassette. D - Received is one container designated prostate, left apex. The specimen consists of one elongated fragment of light dean-white soft tissue measuring 1.3 cm in length and 0.1 cm in diameter. The specimen is totally submitted in one cassette. E - Received is one container designated prostate, left mid. The specimen consists of two elongated fragments of light dean-white soft tissue measuring 1.0 and 1.5 cm in length and 0.1 cm in diameter. The specimen is totally submitted in one cassette. F - Received is one container designated prostate, left base. The specimen consists of one elongated fragment of light dean-white soft tissue measuring 1.2 cm in length and 0.1 cm in diameter. The specimen is totally submitted in one cassette. / SJ:rg 09/30/2022 TC:0 CPT: G0146
== END | disposition home or self-care (01) ==
LOC: LABSPEC 16:31
PROVIDERS: PCP Internal Medicine; Referring Provider Urology; Visit Provider Urology
DX: R97.20 Elevated prostate specific antigen [PSA] (principal)
CPT/HCPCS: 88305; 88341; 88342; G0416

== ENCOUNTER → 2022-12-29 | Outpatient (CLI) | payer MEDICARE, BC, SELFPAY | END | disposition home or self-care (01) | LOC: LABSPEC 16:04 | PROVIDERS: PCP Internal Medicine; Referring Provider Urology; Visit Provider Urology | DX: N20.0 Calculus of kidney (principal) | CPT/HCPCS: 87086 ==